=== PATIENT | female | born 1965 | race Caucasian/White ===

== ENCOUNTER 2018-03-10 23:10 | Inpatient (IN) | payer OTHER ==
--- NOTE | 2018-03-10 23:25 | ED ---
Overdose HPI - General Stated Complaint: MENTAL HEALTH Time Seen by Provider: 03/10/18 23:10 Source: patient, RN/MD, EMS, RN notes reviewed Mode of arrival: EMS - History of Present Illness Initial Comments: This is a 52-year-old female with a history depression who apparently took an overdose of Seroquel tonight. This unclear exactly what time she was picked up by EMS from 5 PM. He believes she took 30 of them. She states she was trying and at all. She does have a history of a previous episode about 5 years ago and per paramedics who did pick the patient up into transported here vaginally there is a history of cocaine abuse on the weekends. She denies any other symptoms at this time she does feel tired. She maintained her vitals per EMS on the way in. She was found to have alcohol in her system also upon evaluation at [facility]. She did admit to drinking wine tonight. No other complaints no other modifying factors she denies any other drugs. MD Complaint: intentional overdose - Related Data Home Medications Medication Instructions Recorded Confirmed FLUoxetine HCL [PROzac] 10 mg PO DAILY 01/03/15 01/03/15 traMADol HCl [Ultram] 50 mg PO Q4H PRN 01/03/15 01/03/15 traZODone HCL [Desyrel] 2 tab PO HS 01/03/15 01/03/15 Previous Rx's Medication Instructions Recorded Ketorolac [Toradol] 10 mg PO Q6HR PRN #20 tab 01/03/15 Allergies Allergy/AdvReac Type Severity Reaction Status Date / Time codeine Allergy Rash/Hives Verified 03/10/18 23:32 Penicillins AdvReac Anaphylaxis Verified 03/10/18 23:32 Review of Systems ROS Statement: Those systems with pertinent positive or pertinent negative responses have been documented in the HPI. ROS Other: All systems not noted in ROS Statement are negative. Past Medical History Past Medical History: No Reported History History of Any Multi-Drug Resistant Organisms: None Reported Past Surgical History: Section, Hysterectomy, Tonsillectomy, Tubal Ligation Additional Past Surgical History / Comment(s): SINUS SURGERY Past Anesthesia/Blood Transfusion Reactions: Motion Sickness, Postoperative Nausea & Vomiting (PONV) Past Psychological History: No Psychological Hx Reported Smoking Status: Current every day smoker Additional Past Alcohol Use History / Comment(s): HALF A PACK A DAY Past Drug Use History: None Reported General Exam - General Exam Comments Initial Comments: This is a well-developed well-nourished awake alert oriented 3 female General appearance: alert, in no apparent distress Head exam: Present: atraumatic, normocephalic, normal inspection Eye exam: Present: normal appearance, PERRL, EOMI. Absent: scleral icterus, conjunctival injection, periorbital swelling ENT exam: Present: normal exam, mucous membranes moist Neck exam: Present: normal inspection. Absent: tenderness, meningismus, lymphadenopathy Respiratory exam: Present: normal lung sounds bilaterally. Absent: respiratory distress, wheezes, rales, rhonchi, stridor Cardiovascular Exam: Present: regular rate, normal rhythm, normal heart sounds. Absent: systolic murmur, diastolic murmur, rubs, gallop, clicks GI/Abdominal exam: Present: soft, normal bowel sounds. Absent: distended, tenderness, guarding, rebound, rigid Extremities exam: Present: normal inspection, full ROM, normal capillary refill. Absent: tenderness, pedal edema, joint swelling, calf tenderness Back exam: Present: normal inspection Neurological exam: Present: alert, oriented X3, CN II-XII intact Psychiatric exam: Present: depressed, flat affect, suicidal ideation Skin exam: Present: warm, dry, intact, normal color. Absent: rash Course Vital Signs 03/10/18 23:25 Temperature 97.0 F L Pulse Rate 92 Respiratory 16 Rate Blood Pressure 127/59 O2 Sat by Pulse 94 L Oximetry Medical Decision Making - Medical Decision Making I did review the history and physical with the patient as well as the paperwork provided by the sending facility. Patient is awake alert oriented 3 she will be monitored medically tonight and psychiatry will be consulted in the morning patient still states she is suicidal. Disposition Clinical Impression: Drug overdose, Depression, Suicidal overdose Disposition: ADMITTED IP TO THIS [facility] Condition: Stable Referrals: Kash Garcia MD [Primary Care Provider] - 1-2 days
[2018-03-11] MEDS ORDERED: NALOXONE 0.4 MG/ML 1 ML VIAL IV PRN (00:52)
[2018-03-11] MEDS: SODIUM CHLORIDE 0.9% 1,000 ML IV SCH ×2 (02:46→14:14)
[2018-03-11 07:48] VITALS: BMI 37.1
[2018-03-11] MEDS ORDERED: NITROGLYCERIN SL TABS 0.4 MG TAB SUBLINGUAL PRN (10:59)
--- NOTE | 2018-03-11 11:18 | P.HPIM ---
History of Present Illness 52-year-old female with a history depression who apparently took an overdose of Seroquel tonight. This unclear exactly what time she was picked up by EMS from 5 PM. He believes she took 30 of them. She states she was trying and at all. She does have a history of a previous episode about 5 years ago and per paramedics who did pick the patient up into transported here vaginally there is a history of cocaine abuse on the weekends. She denies any other symptoms at this time she does feel tired. She maintained her vitals per EMS on the way in. She was found to have alcohol in her system also upon evaluation at [facility]. She did admit to drinking wine tonight. No other complaints no other modifying factors she denies any other drugs. Patient is quite a bit depressed and intentionally overdose and trying to kill herself. Patient denied any fever chills patient is awake alert oriented 3 patient doesn 't have any QT prolongation patient's QTC is around [address] [facility] to repeat another EKG. All the labs are essentially within normal limits patient does have history of coronary artery disease. Patient can be transferred to psychiatric floor after psychiatric evaluation. Review of Systems REVIEW OF SYSTEMS: CONSTITUTIONAL: No fever, no malaise, no fatigue. HEENT: No recent visual problems or hearing problems. Denied any sore throat. CARDIOVASCULAR: No chest pain, orthopnea, PND, no palpitations, no syncope. PULMONARY: No shortness of breath, no cough, no hemoptysis. GASTROINTESTINAL: No diarrhea, no nausea, no vomiting, no abdominal pain. Normoactive bowel sounds. NEUROLOGICAL: No headaches, no weakness, no numbness. HEMATOLOGICAL: Denies any bleeding or petechiae. GENITOURINARY: Denies any burning micturition, frequency, or urgency. MUSCULOSKELETAL/RHEUMATOLOGICAL: Denies any joint pain, swelling, or any muscle pain. ENDOCRINE: Denies any polyuria or polydipsia. The rest of the 14-point review of systems is negative. Past Medical History Past Medical History: No Reported History History of Any Multi-Drug Resistant Organisms: None Reported Past Surgical History: Section, Hysterectomy, Tonsillectomy, Tubal Ligation Additional Past Surgical History / Comment(s): SINUS SURGERY Past Anesthesia/Blood Transfusion Reactions: Motion Sickness, Postoperative Nausea & Vomiting (PONV) Past Psychological History: Depression Additional Psychological History / Comment(s): prior suicide attempt in 2011 Smoking Status: Current every day smoker Additional Past Alcohol Use History / Comment(s): HALF A PACK A DAY Past Drug Use History: None Reported Medications and Allergies Home Medications Medication Instructions Recorded Confirmed Type traZODone HCL [Desyrel] 200 mg PO HS 01/03/15 03/11/18 History Aspirin EC [Ecotrin Low Dose] 81 mg PO DAILY 03/11/18 03/11/18 History Atorvastatin [Lipitor] 20 mg PO DAILY 03/11/18 03/11/18 History Clopidogrel [Plavix] 75 mg PO DAILY 03/11/18 03/11/18 History Furosemide [Lasix] 20 mg PO DAILY 03/11/18 03/11/18 History Metoprolol Tartrate [Lopressor] 25 mg PO BID 03/11/18 03/11/18 History Nitroglycerin Sl Tabs [Nitrostat] 0.4 mg SUBLINGUAL Q5M PRN 03/11/18 03/11/18 History Potassium Chloride ER [K-Dur 20] 20 meq PO DAILY 03/11/18 03/11/18 History Sertraline [Zoloft] 100 mg PO DAILY 03/11/18 03/11/18 History Allergies Allergy/AdvReac Type Severity Reaction Status Date / Time codeine Allergy Rash/Hives Verified 03/11/18 09:44 Penicillins AdvReac Anaphylaxis Verified 03/11/18 09:44 Physical Exam Vitals: Vital Signs Temp Pulse Pulse Resp BP BP Pulse Ox 03/11/18 07:58 96.7 F L 75 18 117/58 98 03/11/18 06:29 72 17 118/73 96 03/11/18 05:58 97.0 F L 03/11/18 05:38 76 17 121/60 97 03/11/18 04:15 88 17 144/63 98 03/11/18 02:47 89 17 127/66 99 03/11/18 01:36 97.0 F L 76 17 133/45 96 03/11/18 00:26 97.1 F L 72 17 104/58 94 L 03/10/18 23:25 97.0 F L 92 16 127/59 94 L Intake and Output 03/10/18 03/11/18 03/11/18 22:59 06:59 14:59 Other: Weight 104.326 kg PHYSICAL EXAMINATION: GENERAL: The patient is alert and oriented x3, not in any acute distress. Well developed, well nourished. HEENT: Pupils are round and equally reacting to light. EOMI. No scleral icterus. No conjunctival pallor. Normocephalic, atraumatic. No pharyngeal erythema. No thyromegaly. CARDIOVASCULAR: S1 and S2 present. No murmurs, rubs, or gallops. PULMONARY: Chest is clear to auscultation, no wheezing or crackles. ABDOMEN: Soft, nontender, nondistended, normoactive bowel sounds. No palpable organomegaly. MUSCULOSKELETAL: No joint swelling or deformity. EXTREMITIES: No cyanosis, clubbing, or pedal edema. NEUROLOGICAL: Gross neurological examination did not reveal any focal deficits. SKIN: No rashes. Thrombosis Risk Factor Assmnt - Choose All That Apply Any of the Below Risk Factors Present?: Yes Each Factor Represents 1 point: Age 41-60 years Thrombosis Risk Factor Assessment Total Risk Factor Score: 1 Thrombosis Risk Factor Assessment Level: Low Risk Assessment and Plan Plan: -Intentional overdose on Seroquel and suicide attempt and severe depression: Secondary was consulted patient the we'll repeat another EKG if he doesn't have significant QTC prolongation patient will be discharged to psychiatric floor after psychiatric evaluation if that is recommended from psychiatric perspective. Patient is quite a bit depressed and will be resumed on her SSRI. -History of coronary disease denied any present chest pain patient had a CABG in the past patient will be resumed on her home medications -Hyperlipidemia continue with atorvastatin.
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
[2018-03-11 15:20] VITALS: BP 122/68; PULSE 82; RESP 16; TEMP 98.7
--- NOTE | 2018-03-11 18:18 | P.DS ---
Providers Date of admission: 03/11/18 00:52 Attending physician: Aurelio Melton Consults: 03/11/18 00:53 Consult Physician Routine Consulting Provider: Annalisa Yanez Consult Reason/Comments: Impression, drug overdose, suicidal attempt Do you want consulting provider notified?: Yes, Notify in am Primary care physician: [facility] Course: Please refer to my HPI Patient Condition at Discharge: Stable Plan - Discharge Summary Discharge Rx Participant: No New Discharge Prescriptions: No Action traZODone HCL [Desyrel] 200 mg PO HS Furosemide [Lasix] 20 mg PO DAILY Nitroglycerin Sl Tabs [Nitrostat] 0.4 mg SUBLINGUAL Q5M PRN PRN Reason: Chest Pain Aspirin EC [Ecotrin Low Dose] 81 mg PO DAILY Sertraline [Zoloft] 100 mg PO DAILY Clopidogrel [Plavix] 75 mg PO DAILY Atorvastatin [Lipitor] 20 mg PO DAILY Metoprolol Succinate (ER) [Toprol Xl] 25 mg PO DAILY Potassium Chloride ER [K-Dur 10] 10 meq PO DAILY Discharge Medication List traZODone HCL [Desyrel] 200 mg PO HS 01/03/15 [History] Aspirin EC [Ecotrin Low Dose] 81 mg PO DAILY 03/11/18 [History] Atorvastatin [Lipitor] 20 mg PO DAILY 03/11/18 [History] Clopidogrel [Plavix] 75 mg PO DAILY 03/11/18 [History] Furosemide [Lasix] 20 mg PO DAILY 03/11/18 [History] Metoprolol Succinate (ER) [Toprol Xl] 25 mg PO DAILY 03/11/18 [History] Nitroglycerin Sl Tabs [Nitrostat] 0.4 mg SUBLINGUAL Q5M PRN 03/11/18 [History] Potassium Chloride ER [K-Dur 10] 10 meq PO DAILY 03/11/18 [History] Sertraline [Zoloft] 100 mg PO DAILY 03/11/18 [History] Follow up Appointment(s)/Referral(s): Kash Garcia MD [Primary Care Provider] - 3 Days Discharge Disposition: TRANSFER TO PSYCH HOSP/UNIT
[2018-03-11] MEDS ORDERED: METOPROLOL TARTRATE 25 MG TAB PO SCH (21:00)
[2018-03-12] MEDS ORDERED: FUROSEMIDE 20 MG TAB PO SCH (09:00)
[2018-03-12] MEDS ORDERED: ATORVASTATIN 20 MG TAB PO SCH (09:00)
[2018-03-12] MEDS ORDERED: CLOPIDOGREL 75 MG TAB PO SCH (09:00)
[2018-03-12] MEDS ORDERED: POTASSIUM CHLORIDE ER 20 MEQ TAB.ER PO SCH (09:00)
[2018-03-12] MEDS ORDERED: SERTRALINE 100 MG TAB PO SCH (09:00)
[2018-03-12] MEDS ORDERED: ASPIRIN 81 MG PO SCH (09:00)
== END 2018-03-11 15:45 | disposition still patient (30) | DRG 918 ==
LOC: EC 23:10 → 6SEL 03-11 00:52
PROVIDERS: ADMIT Internal Medicine; ATTEND Internal Medicine
DX: T43.592A Poisoning by other antipsychotics and neuroleptics, intentional self-harm, initial encounter (principal); R45.851 Suicidal ideations; E78.5 Hyperlipidemia, unspecified; F17.210 Nicotine dependence, cigarettes, uncomplicated; F32.9 Major depressive disorder, single episode, unspecified; E66.9 Obesity, unspecified; F14.90 Cocaine use, unspecified, uncomplicated; I25.10 Atherosclerotic heart disease of native coronary artery without angina pectoris; Z91.5 Personal history of self-harm; Z95.1 Presence of aortocoronary bypass graft; Z79.02 Long term (current) use of antithrombotics/antiplatelets; Z79.82 Long term (current) use of aspirin; Z79.899 Other long term (current) drug therapy; Z98.890 Other specified postprocedural states; Z90.710 Acquired absence of both cervix and uterus; Z98.51 Tubal ligation status; Z68.37 Body mass index [BMI] 37.0-37.9, adult
CPT/HCPCS: 99285

== ENCOUNTER 2018-03-11 15:42 | Inpatient (IN) | payer OTHER ==
[2018-03-11] MEDS ORDERED: ACETAMINOPHEN TAB 325 MG TAB PO PRN (15:52)
[2018-03-11] MEDS ORDERED: MAG HYDROX/AL HYDROX/SIMETH 30 ML CUP PO PRN (15:52)
[2018-03-11] MEDS ORDERED: MAGNESIUM HYDROXIDE 2,400 MG/10 ML CUP PO PRN (15:52)
[2018-03-11] MEDS ORDERED: NITROGLYCERIN SL TABS 0.4 MG TAB SUBLINGUAL PRN (15:54)
[2018-03-11] MEDS ORDERED: PNEUMOCOCCAL VACC-PNEUMOVAX 23 25 MCG/0.5 ML VIAL IM ONE (17:46)
[2018-03-11] MEDS ORDERED: INFLUENZA VACCINE (6 MOS+) 60 MCG/0.5 ML SYRINGE IM ONE (17:46)
[2018-03-11] MEDS ORDERED: METOPROLOL TARTRATE 25 MG TAB PO SCH (21:00)
[2018-03-11] MEDS ORDERED: METOPROLOL TARTRATE 12.5 MG TAB PO SCH (21:00)
[2018-03-12 08:34] LABS: Basophils # (A) 0.1 k/uL (0-0.2); Basophils % (A) 1 %; Eosinophils # (A) 0.2 k/uL (0-0.7); Eosinophils % (A) 2 %; HGB 14.6 gm/dL (11.4-16.0); Lymphocytes # (A) 2.8 k/uL (1.0-4.8); Lymphocytes % (A) 27 %; MCH 31.3 pg (25.0-35.0); MCHC 33.2 g/dL (31.0-37.0); MCV 94.3 fL (80.0-100.0); Mean Platelet Volume 8.2; Monocytes # (A) 0.6 k/uL (0-1.0); Monocytes % (A) 6 %; Neutrophils # (A) 6.3 k/uL (1.3-7.7); Neutrophils % (A) 62 %; Platelet Count 329 k/uL (150-450); RBC 4.67 m/uL (3.80-5.40); RDW 13.2 % (11.5-15.5); WBC 10.1 k/uL (3.8-10.6)
[2018-03-12] MEDS ORDERED: RX INFO: IV CONTRAST WAS GIVEN 1 EACH MISC MISCELLANE PRN (08:51)
[2018-03-12] MEDS ORDERED: POTASSIUM CHLORIDE ER 20 MEQ TAB.ER PO SCH (09:00)
[2018-03-12] MEDS ORDERED: METOPROLOL SUCCINATE (ER) 25 MG TAB.ER.24H PO SCH ×2 (09:00→14:45)
[2018-03-12] MEDS ORDERED: FUROSEMIDE 20 MG TAB PO SCH (09:00)
[2018-03-12] MEDS ORDERED: ASPIRIN 81 MG PO SCH (09:00)
[2018-03-12] MEDS ORDERED: POTASSIUM CHLORIDE ER 10 MEQ TAB.ER.PRT PO SCH (09:00)
[2018-03-12] MEDS: NICOTINE 14MG/24HR PATCH TRANSDERM SCH (09:05)
[2018-03-12] MEDS: ATORVASTATIN 20 MG TAB PO SCH (09:06)
[2018-03-12] MEDS: CLOPIDOGREL 75 MG TAB PO SCH (09:06)
[2018-03-12 09:13] LABS: Albumin 4.1 g/dL (3.5-5.0); Calcium 9.5 mg/dL (8.4-10.2); Potassium 4.3 mmol/L (3.5-5.1); Total Bilirubin 0.6 mg/dL (0.2-1.3); Total Protein 6.2 g/dL (6.3-8.2)
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
[2018-03-12] MEDS: LITHIUM CARBONATE ER 450 MG TABLET.ER PO SCH ×2 (09:30→21:16)
--- NOTE | 2018-03-12 11:50 | CT ---
EXAMINATION TYPE: CT brain w con DATE OF EXAM: 03/12/2018 COMPARISON: NONE HISTORY: Dementia CT DLP: 12/01/2005 mGycm Automated exposure control for dose reduction was used. CONTRAST: CT scan of the head is performed with IV Contrast, patient injected with 100 mL of Isovue 300. FINDINGS: There is no abnormal enhancing mass or midline shift identified. The ventricles and sulci are compat ible with mild degenerative change.. The globes are intact and the visualized sinuses are clear. IMPRESSION: Mild degenerative change. Correlate with MRI as clinically warranted.
--- NOTE | 2018-03-12 14:32 | P.CONS ---
History of Present Illness - Reason for Consult First-degree AV block - History of Present Illness This is a pleasant 52-year-old female was transferred my service because of suicidal ideations patient the overdose on Seroquel patient is clinically doing well patient also had first-degree AV block because of which we cut down on the beta josé miguel her heart rate went up now. Patient is also on Lasix which was discontinued and I don't see a reason for that patient does have history of coronary artery disease will see if we block is better we'll increase the beta josé miguel dose back to 25 mg as she has history of coronary artery disease and heart rate is 99 Review of Systems REVIEW OF SYSTEMS: CONSTITUTIONAL: No fever, no malaise, no fatigue. HEENT: No recent visual problems or hearing problems. Denied any sore throat. CARDIOVASCULAR: No chest pain, orthopnea, PND, no palpitations, no syncope. PULMONARY: No shortness of breath, no cough, no hemoptysis. GASTROINTESTINAL: No diarrhea, no nausea, no vomiting, no abdominal pain. Normoactive bowel sounds. NEUROLOGICAL: No headaches, no weakness, no numbness. HEMATOLOGICAL: Denies any bleeding or petechiae. GENITOURINARY: Denies any burning micturition, frequency, or urgency. MUSCULOSKELETAL/RHEUMATOLOGICAL: Denies any joint pain, swelling, or any muscle pain. ENDOCRINE: Denies any polyuria or polydipsia. The rest of the 14-point review of systems is negative. Past Medical History Past Medical History: Myocardial Infarction ([place]) Additional Past Medical History / Comment(s): Arthritis. Last Myocardial Infarction Date:: unknown History of Any Multi-Drug Resistant Organisms: None Reported Past Surgical History: Section, Coronary Bypass/CABG, Hysterectomy, Tonsillectomy, Tubal Ligation Additional Past Surgical History / Comment(s): SINUS SURGERY, Coronary Artery Bipass-October 2015 Past Anesthesia/Blood Transfusion Reactions: Motion Sickness, Postoperative Nausea & Vomiting (PONV) Additional Past Anesthesia/Blood Transfusion Reaction / Comm: "fast metabolizer of anesthsia" per patient. Pt. relays after her CABG, the physicians told her that she awoke "too early." Past Psychological History: Depression Additional Psychological History / Comment(s): prior suicide attempt in 2011 Smoking Status: Current every day smoker Past Alcohol Use History: Abuse Additional Past Alcohol Use History / Comment(s): HALF A PACK A DAY. Pt. admits to binge drinking on the weekends. Past Drug Use History: Cocaine, Marijuana - Past Family History Mother Additional Family Medical History / Comment(s): Alzheimers-Mother is alive at the age of [id number] years old. Father Additional Family Medical History / Comment(s): Alzhemiers-father is alive at the age of 8787 years old. Medications and Allergies Home Medications Medication Instructions Recorded Confirmed Type traZODone HCL [Desyrel] 200 mg PO HS 01/03/15 03/11/18 History Aspirin EC [Ecotrin Low Dose] 81 mg PO DAILY 03/11/18 03/11/18 History Atorvastatin [Lipitor] 20 mg PO DAILY 03/11/18 03/11/18 History Clopidogrel [Plavix] 75 mg PO DAILY 03/11/18 03/11/18 History Furosemide [Lasix] 20 mg PO DAILY 03/11/18 03/11/18 History Metoprolol Succinate (ER) [Toprol 25 mg PO DAILY 03/11/18 03/11/18 History Xl] Nitroglycerin Sl Tabs [Nitrostat] 0.4 mg SUBLINGUAL Q5M PRN 03/11/18 03/11/18 History Potassium Chloride ER [K-Dur 10] 10 meq PO DAILY 03/11/18 03/11/18 History Sertraline [Zoloft] 100 mg PO DAILY 03/11/18 03/11/18 History Allergies Allergy/AdvReac Type Severity Reaction Status Date / Time codeine Allergy Rash/Hives Verified 03/11/18 16:44 Penicillins AdvReac Anaphylaxis Verified 03/11/18 16:44 Physical Exam Vitals: Vital Signs Temp Pulse Resp BP Pulse Ox 03/12/18 02:30 97.6 F 99 16 114/75 03/11/18 16:21 96.3 F L 79 16 110/75 100 Intake and Output 03/11/18 03/12/18 03/12/18 22:59 06:59 14:59 Other: Weight 104.32 kg PHYSICAL EXAMINATION: GENERAL: The patient is alert and oriented x3, not in any acute distress. Well developed, well nourished. HEENT: Pupils are round and equally reacting to light. EOMI. No scleral icterus. No conjunctival pallor. Normocephalic, atraumatic. No pharyngeal erythema. No thyromegaly. CARDIOVASCULAR: S1 and S2 present. No murmurs, rubs, or gallops. PULMONARY: Chest is clear to auscultation, no wheezing or crackles. ABDOMEN: Soft, nontender, nondistended, normoactive bowel sounds. No palpable organomegaly. MUSCULOSKELETAL: No joint swelling or deformity. EXTREMITIES: No cyanosis, clubbing, or pedal edema. NEUROLOGICAL: Gross neurological examination did not reveal any focal deficits. SKIN: No rashes. Results CBC & Chem 7: 03/12/18 08:06 03/12/18 08:06 Labs: Abnormal Lab Results - Last 24 Hours (Table) 03/12/18 Range/Units 08:06 Total Protein 6.2 L (6.3-8.2) g/dL Assessment and Plan Plan: -First-degree AV block secondary to beta josé miguel further management as mentioned above -Coronary artery disease further management as mentioned in the HPI itself -Severe depression and suicidal ideation management as per primary service -Hyperlipidemia continue with atorvastatin. Patient's of diuretic therapy will discuss reviewed and patient the potassium will be discontinued as well.
[2018-03-12] MEDS ORDERED: METOPROLOL SUCCINATE (ER) 25 MG TAB.ER.24H PO STA (15:04)
[2018-03-12] MEDS: TEMAZEPAM 30 MG CAP PO PRN (22:37)
[2018-03-13] MEDS: NICOTINE 14MG/24HR PATCH TRANSDERM SCH (08:48)
[2018-03-13] MEDS: LITHIUM CARBONATE ER 450 MG TABLET.ER PO SCH ×2 (08:48→21:40)
[2018-03-13] MEDS: CLOPIDOGREL 75 MG TAB PO SCH (08:49)
[2018-03-13] MEDS: METOPROLOL SUCCINATE (ER) 25 MG TAB.ER.24H PO SCH (08:49)
[2018-03-13] MEDS: ATORVASTATIN 20 MG TAB PO SCH (08:49)
[2018-03-13] MEDS ORDERED: hydrOXYzine PAMOATE 25 MG CAP PO PRN (10:21)
--- NOTE | 2018-03-13 10:28 | P.PN ---
Progress Note - Text Progress Note Date: 03/13/18 Patient was seen for follow-up examination. She is taking her medications and says she is having some withdrawal symptoms from cocaine. When she was asked what she was doing at home since she had told me she was taking cocaine only 4 days a week. She said she would either by more cocaine or drink wine whenever she had withdrawal symptoms, which, she did not tell me before today. Otherwise she does not have any complaint. She feels she is feeling a little better, is hopeful and is happy that she is enrolled now for Medicare or Medicaid. The computed tomography scan of the brain shows mild generalized cerebral degenerative changes. This is an obese ambulatory white female with adequate hygiene. She is polite and cooperative. She is attending her groups. She does not show any psychomotor agitation or retardation. Her speech is spontaneous relevant and goal-directed. Her mood appears to be euthymic and affect is appropriate. Today she denies suicidal thoughts. She also denies homicidal thoughts, hallucinations and delusional thinking. Her sensorium is fair. Plan: Continue lithium 450 mg twice a day, groups and other therapies. Start on Vistaril 25 mg every 6 hours when necessary for anxiety agitation/withdrawal symptoms.
[2018-03-13 19:10] LABS: Appearance,Urine Clear (Clear); Bilirubin,Urine Negative (Negative); Blood,Urine Negative (Negative); Color,Urine Light Yellow; Glucose,Urine (UA) Negative (Negative); Ketones,Urine Negative (Negative); Leukocyte Esterase,Urine Negative (Negative); Nitrite,Urine Negative (Negative); PH, Urine 6.5 (5.0-8.0); Protein,Urine Negative (Negative); Urobilinogen,Urine <2.0 mg/dL (<2.0)
[2018-03-13] MEDS: TEMAZEPAM 30 MG CAP PO PRN (21:41)
[2018-03-14] MEDS: METOPROLOL SUCCINATE (ER) 25 MG TAB.ER.24H PO SCH (09:24)
[2018-03-14] MEDS: ATORVASTATIN 20 MG TAB PO SCH (09:24)
[2018-03-14] MEDS: CLOPIDOGREL 75 MG TAB PO SCH (09:24)
[2018-03-14] MEDS: LITHIUM CARBONATE ER 450 MG TABLET.ER PO SCH ×2 (09:24→20:56)
[2018-03-14] MEDS: NICOTINE 14MG/24HR PATCH TRANSDERM SCH (09:24)
--- NOTE | 2018-03-14 14:43 | P.PN ---
Progress Note - Text Interval history: The patient is found in her room she follows me to an interview room. She reports her mood is sad she feels depressed she has hopeless thoughts and finds herself easily provoked to tears. She presented with suicidal ideation and states that she struggles with suicidal thoughts frequently. She has been started on lithium her questions regarding the medication were answered. She expressed concern of using it when she is on Lasix however she is not prescribed Lasix at this time. Baseline labs are reviewed kidney function is within normal limits. She discusses having difficulty with sleep and Restoril was ineffective. She states trazodone is affective and asked affective be restarted. Mental status exam: The patient is an overweight female she is dressed in hospital gowns. She wears eyeglasses and has a nose piercing. She reports a depressed mood with hopelessness thinking and recent suicidal ideation. She is endorsing no homicidal ideation intent or plan. She reports no auditory or visual hallucinations or specific delusions. She demonstrates no tangential thinking loose associations or flight of ideas. She does not appear hypomanic or manic. Insight and judgment limited. She is oriented to person place and date. She demonstrates no verbal or physical aggressiveness. Affect is tearful during the session. Plan: The patient will continue on her current medications. Her questions regarding lithium were answered. We will restart trazodone 100 mg at bedtime and discontinue Restoril as she has found that ineffective. We will monitor her for safety and encourage continued participation in the milieu. She is encouraged to stay out of bed during the day so that she is able to sleep better in the evening.
[2018-03-14] MEDS: traZODone HCL 100 MG TAB PO SCH (21:44)
[2018-03-15] MEDS: METOPROLOL SUCCINATE (ER) 25 MG TAB.ER.24H PO SCH (09:21)
[2018-03-15] MEDS: CLOPIDOGREL 75 MG TAB PO SCH (09:21)
[2018-03-15] MEDS: NICOTINE 14MG/24HR PATCH TRANSDERM SCH (09:21)
[2018-03-15] MEDS: LITHIUM CARBONATE ER 450 MG TABLET.ER PO SCH ×2 (09:21→21:13)
[2018-03-15] MEDS: ATORVASTATIN 20 MG TAB PO SCH (09:21)
--- NOTE | 2018-03-15 11:56 | P.PN ---
Progress Note - Text Interval history: The patient is found in group she follows me to an interview room. She reports her mood has been okay she asked questions about the results of the computed tomography scan area and we reviewed those brief results. She has concern that her memory and concentration have been declining over the last year. We discussed options as an outpatient such as further imaging and neuropsych testing. The patient continues to be compliant with medication. She expresses no questions or concerns regarding those. She does still have some problems sleeping last evening. She states she only slept 2-3 hours but staff reported she slept 6. She is encouraged to try taking the trazodone 2 hours before bedtime so that it may be more effective when she goes to bed. Mental status exam: The patient is alert she is dressed in hospital gowns hygiene adequate eye contacts appropriate. She is pleasant and cooperative. She is reporting no acute suicidal ideation intent or plan she is endorsing no hallucinations. Mood is up and down. She demonstrates no verbal or physical aggressiveness. She demonstrates no abnormal involuntary movements. Insight and judgment limited. She remains oriented to person place and date. Affect remains constricted. She is endorsing no homicidal ideation intent or plan. Plan: The patient will continue on her current psychotropic medications. We will monitor her for safety and encourage her participation in the milieu. Vital signs reviewed.
[2018-03-15] MEDS: traZODone HCL 100 MG TAB PO SCH (21:13)
[2018-03-16] MEDS: NICOTINE 14MG/24HR PATCH TRANSDERM SCH (08:49)
[2018-03-16] MEDS: METOPROLOL SUCCINATE (ER) 25 MG TAB.ER.24H PO SCH (08:50)
[2018-03-16] MEDS: LITHIUM CARBONATE ER 450 MG TABLET.ER PO SCH ×2 (08:50→21:32)
[2018-03-16] MEDS: ATORVASTATIN 20 MG TAB PO SCH (08:50)
[2018-03-16] MEDS: CLOPIDOGREL 75 MG TAB PO SCH (08:50)
--- NOTE | 2018-03-16 10:08 | P.PN ---
Progress Note - Text Progress Note Date: 03/16/18 Patient was seen for routine follow-up examination. She is feeling better, does not feel depressed or suicidal. Her came to visit her yesterday and it went well. She still has trouble sleeping at night, apparently Restoril did not help her and she was started on trazodone by the weekend psychiatrist to help her sleep. She was advised that sleepiness from trazodone is its side effect and did not its effect since it is classified as an antidepressant with antidepressant property. She agreed to try melatonin. This is a obese ambulatory white female with good hygiene. She does not show any psychomotor agitation or retardation. Her speech is spontaneous relevant and goal-directed. Her mood is cheerful and affect is appropriate. She denies suicide and homicide thoughts, hallucinations and delusional thinking. She is well oriented with good cognitive functions. Plan: Change trazodone to melatonin at at bedtime for sleep, continue lithium, check lithium level tomorrow morning and consider discharge after that. Continue groups and other therapies.
[2018-03-16] MEDS ORDERED: MELATONIN 3 MG TABLET PO SCH (21:00)
[2018-03-17 06:34] VITALS: RESP 16; TEMP 97.8
[2018-03-17] MEDS: CLOPIDOGREL 75 MG TAB PO SCH (08:57)
[2018-03-17] MEDS: METOPROLOL SUCCINATE (ER) 25 MG TAB.ER.24H PO SCH (08:57)
[2018-03-17] MEDS: ATORVASTATIN 20 MG TAB PO SCH (08:57)
[2018-03-17] MEDS: NICOTINE 14MG/24HR PATCH TRANSDERM SCH (08:57)
[2018-03-17] MEDS: LITHIUM CARBONATE ER 450 MG TABLET.ER PO SCH (08:57)
[2018-03-17 10:37] VITALS: BP 121/64; PULSE 82
--- NOTE | 2018-03-17 13:04 | P.DS ---
Providers Date of admission: 03/11/18 15:42 Expected date of discharge: 03/17/18 Attending physician: Annalisa Yanez Consults: 03/11/18 15:52 Consult Physician Routine Consulting Provider: Cheo Claros Consult Reason/Comments: follow up H & P Do you want consulting provider notified?: Yes Primary care physician: [facility] Course: Patient had her psychiatric evaluation, physical examination and psychosocial evaluation. After psychiatric evaluation her condition was discussed with her and it was agreed to start her on lithium 900 mg a day for mood stabilization and suicide prevention. She responded well to this medication, her mood improved and became euthymic to cheerful. Her suicide thoughts were gone, she is started to participate in groups, socialized with peers and interacted with staff etc. she did not develop any adverse effects from lithium. Over the weekend her when necessary Restoril was changed to trazodone by the weekend psychiatrist which did not help: For the patient. Since trazodone has anti- cholinergic side effects and patient has some cognitive deficits, trazodone was discontinued and she was started on melatonin 3 mg at bedtime. She slept very well on melatonin without any adverse effect. Her lithium level after taking it for 4 days is 0.5. Computed tomography scan of the brain showed mild degenerative changes. Condition on discharge: This is an obese ambulatory white female with good hygiene. She is polite friendly cheerful and cooperative. She does not show any psychomotor agitation or retardation. Her speech is spontaneous relevant and goal-directed. Her affect is appropriate to the thought content. She denies hallucinations and delusional thinking. She denies suicide and homicide thoughts. He is well oriented with adequate memory, concentration, general fund of knowledge etc. Her insight and judgment have improved. Diagnosis on discharge: Unspecified depressive disorder F 32.9. Cocaine use disorder severe F 14.20. 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 ALLERGY to codeine and penicillins. Hypertension. Status post CABG. Patient was advised and agreed to take her medications as prescribed, not to drink alcohol or use drugs, not to drive or operate missionary if she feels sleepy, to get her lithium level checked again next week, engage in activities to stimulate her brain function, to discuss with her doctor if she needs to take any Aricept or other cholinesterase inhibitors to improve her cognitive function, to call her psychiatrist or therapist if she gets confused, has suicidal thoughts etc. and if she cannot get hold of them to go to nearest ER. Patient Condition at Discharge: Stable Plan - Discharge Summary Discharge Rx Participant: No New Discharge Prescriptions: [place] Carbonate ER [Lithobid] 450 mg PO BID 30 Days #60 tablet.er Melatonin 3 mg PO HS 30 Days #30 tablet Metoprolol Succinate (ER) [Toprol XL] 25 mg PO DAILY tab.er.24h Continue Furosemide [Lasix] 20 mg PO DAILY Nitroglycerin Sl Tabs [Nitrostat] 0.4 mg SUBLINGUAL Q5M PRN PRN Reason: Chest Pain Aspirin EC [Ecotrin Low Dose] 81 mg PO DAILY Clopidogrel [Plavix] 75 mg PO DAILY Potassium Chloride ER [K-Dur 10] 10 meq PO DAILY Atorvastatin [Lipitor] 20 mg PO DAILY 30 Days #30 tab Discontinued traZODone HCL [Desyrel] 200 mg PO HS Sertraline [Zoloft] 100 mg PO DAILY Metoprolol Succinate (ER) [Toprol Xl] 25 mg PO DAILY Discharge Medication List Aspirin EC [Ecotrin Low Dose] 81 mg PO DAILY 03/11/18 [History] Clopidogrel [Plavix] 75 mg PO DAILY 03/11/18 [History] Furosemide [Lasix] 20 mg PO DAILY 03/11/18 [History] Nitroglycerin Sl Tabs [Nitrostat] 0.4 mg SUBLINGUAL Q5M PRN 03/11/18 [History] Potassium Chloride ER [K-Dur 10] 10 meq PO DAILY 03/11/18 [History] Atorvastatin [Lipitor] 20 mg PO DAILY 30 Days #30 tab 03/17/18 [Rx] [place] Carbonate ER [Lithobid] 450 mg PO BID 30 Days #60 tablet.er 03/17/18 [Rx ] Melatonin 3 mg PO HS 30 Days #30 tablet 03/17/18 [Rx] Metoprolol Succinate (ER) [Toprol XL] 25 mg PO DAILY tab.er.24h 03/17/18 [Rx] Follow up Appointment(s)/Referral(s): [facility] [Outside] - 03/19/18 1:00 pm (03/19/18 at 1:00pm with Kash Fields MD [Primary Care Provider] - As Needed Patient Instructions/Handouts: Cigarette Smoking and Your Health (GEN), Depression (DC), Suicide Prevention for Adults (DC) Activity/Diet/Wound Care/Special Instructions: Activity and diet as tolerated. Avoid the use of street drugs and alcohol. Remove all firearms from the home. Take all medications as prescribed. Follow up with you Primary Care provider in 1-2 days. When you are in need of refills on your medications please contact your medical provider and/or outpatient psychiatrist to have this done. Please go to scheduled outpatient appointment for aftercare. If symptoms return or become worse call the crisis line at [phone] and/or go to the nearest emergency room for an evaluation.
== END 2018-03-17 16:32 | disposition home or self-care (01) | DRG 881 ==
LOC: 3MHU 15:42
PROVIDERS: ADMIT Psychiatry & Neurology Psychiatry; ATTEND Psychiatry & Neurology Psychiatry
DX: F32.9 Major depressive disorder, single episode, unspecified (principal); F14.20 Cocaine dependence, uncomplicated; R45.851 Suicidal ideations; I10 Essential (primary) hypertension; I44.0 Atrioventricular block, first degree; I25.10 Atherosclerotic heart disease of native coronary artery without angina pectoris; M19.90 Unspecified osteoarthritis, unspecified site; E66.9 Obesity, unspecified; F17.210 Nicotine dependence, cigarettes, uncomplicated; E78.5 Hyperlipidemia, unspecified; Z95.1 Presence of aortocoronary bypass graft; Z88.6 Allergy status to analgesic agent; Z88.0 Allergy status to penicillin; Z68.37 Body mass index [BMI] 37.0-37.9, adult; Z81.1 Family history of alcohol abuse and dependence; Z81.3 Family history of other psychoactive substance abuse and dependence; Z91.410 Personal history of adult physical and sexual abuse; Z90.710 Acquired absence of both cervix and uterus; Z91.5 Personal history of self-harm; I25.2 Old myocardial infarction; Z90.89 Acquired absence of other organs; Z98.51 Tubal ligation status; Z82.0 Family history of epilepsy and other diseases of the nervous system; Z79.02 Long term (current) use of antithrombotics/antiplatelets; Z79.899 Other long term (current) drug therapy; Z79.82 Long term (current) use of aspirin
CPT/HCPCS: 70460; 80053; 80178; 81003; 81025; 84443; 85025; 90686; 90732; 93005

== ENCOUNTER → 2018-08-07 | Outpatient (CLI) | payer MEDICAID, OTHER ==
--- NOTE | 2018-08-07 12:33 | MR ---
MR brain without contrast HISTORY: Memory loss Multiplanar multisequence imaging through the brain and correlated to CT brain 03/12/2018 There is no restricted diffusion. No hemorrhage or hydrocephalus. Cerebellopontine angles, corpus eric losum, cervical medullary junction are normal. There is a partially empty sella. No hydrocephalus or hemorrhage evident. Scattered subcortical hyperintensities on inversion recovery and T2-weighted sequ ences especially towards the right parietal and frontal regions noted, approximately 5-10 lesions, th e largest only 3 mm. The orbits show symmetric appearance. Paranasal sinuses are well aerated. There are normal vascular flow voids. Mastoids show no inflammatory change. IMPRESSION: Nonspecific white matter demyelination of questionable clinical significance correlate.
== END | disposition home or self-care (01) ==
LOC: RADMRIMAIN 09:50
PROVIDERS: ATTEND Psychiatry & Neurology Neurology
DX: R41.3 Other amnesia (principal)
CPT/HCPCS: 70551

== ENCOUNTER → 2018-11-20 | Outpatient (CLI) | payer OTHER ==
--- NOTE | 2018-11-22 11:56 | US ---
EXAMINATION TYPE: US carotid duplex BILAT DATE OF EXAM: 11/20/2018 COMPARISON: NONE CLINICAL HISTORY: I99.9 Small Vessel disease. Memory loss EXAM MEASUREMENTS: RIGHT: Peak Systolic Velocity (PSV) cm/sec ----- Right CCA: 95.7 ----- Right ICA: 97.5 ----- Right ECA: 213 ICA/CCA ratio: 1.02 RIGHT: End Diastole cm/sec ----- Right CCA: 37.9 ----- Right ICA: 42.9 ----- Right ECA: 43.9 LEFT: Peak Systolic Velocity (PSV) cm/sec ----- Left CCA: 114 ----- Left ICA: 105 ----- Left ECA: 133 ICA/CCA ratio: 0.92 LEFT: End Diastole cm/sec ----- Left CCA: 43.3 ----- Left ICA: 58.8 ----- Left ECA: 35.3 VERTEBRALS (direction of flow): Right Vertebral: Antegrade Left Vertebral: Antegrade Rhythm: Normal Grayscale images show mild peripheral plaque at bilateral carotid broad bulb level but velocity measu rements and ratios in visualized portion of both internal carotid arteries is within normal limits. IMPRESSION: No hemodynamically significant stenosis seen in either internal carotid artery. Criteria for Assigning % of Stenosis / Diameter reduction (Estimation based on the indirect measurements of the internal carotid artery velocities (ICA PSV). 1. Normal (no stenosis)=ICA PSV < 125 cm/s: ratio < 2.0: ICA EDV<40 cm/s. 2. Less than 50% stenosis=ICA PSV < 125 cm/s: ratio < 2.0: ICA EDV<40 cm/s. 3. 50 to 69% stenosis=ICA PSV of 125 to 230 cm/s: ration 2.0 ? 4.0: ICA EDV 40-100 cm/s. 4. Greater than 70% stenosis to near occlusion= ICA PSV > 230 cm/s: ratio > 4.0: ICA EDV > 100 cm/s. 5. Near occlusion= ICA PSV velocities may be low or undetectable: variable ratio and ICA EDV. 6. Total occlusion=unable to detect flow.
== END | disposition home or self-care (01) ==
LOC: RADUSWWP 16:36
PROVIDERS: ATTEND Psychiatry & Neurology Neurology
DX: I73.9 Peripheral vascular disease, unspecified (principal)
CPT/HCPCS: 93880